=== PATIENT | female | born 1970 | race Caucasian/White ===

== ENCOUNTER 2018-09-01 12:45 | Emergency (ER) | payer OTHER ==
[2018-09-01 12:46] VITALS: O2SAT 100
[2018-09-01 13:04] VITALS: BP 145/96; PULSE 74; RESP 16; TEMP 97.8
== END 2018-09-01 13:25 | disposition home or self-care (01) | DRG 159 ==
LOC: ED 12:45
DX: K08.89 Other specified disorders of teeth and supporting structures (principal); K04.7 Periapical abscess without sinus
CPT/HCPCS: 99282